=== PATIENT | male | born 1955 | race Caucasian/White ===

== ENCOUNTER 2019-03-02 09:13 | Day surgery (SDC) | payer BC, OTHER ==
[2019-02-27 18:13] VITALS: BMI 22.7
[2019-03-02] VITALS (12 sets, daily range): BP systolic 113–144; BP diastolic 63–90; PULSE 89–110; RESP 12–24; Ht 165.1 cm; Wt 62.2 kg
[~2019-03-02] VITALS: Ht 165.1 cm; Wt 62.2 kg
[~2019-03-02 09:13] MED LIST: DIAZ5TAB PO; SEVOFLURANE 15 MIN ONE; TYL500 PO
[2019-03-02] MEDS ORDERED: PROPOFOL 20 ML ONE (10:14)
[2019-03-02] MEDS ORDERED: CEFAZOLIN 1 GM INJ ONE (10:14)
[2019-03-02] MEDS ORDERED: FENTAnyl 50 MCG/ML VIAL ONE (10:14)
[2019-03-02] MEDS ORDERED: MIDAZOLAM 1 MG/ML 2 ML INJ ONE (10:14)
[2019-03-02] MEDS ORDERED: LIDOCAINE 2% (SDV) 5 ML INJ ONE (10:14)
[2019-03-02] MEDS ORDERED: ASPI325T30 PO (10:26)
[2019-03-02] MEDS ORDERED: GABA-526 PO (10:26)
--- NOTE | 2019-03-02 10:52 | PREAC ---
Date/Time of Note Date/Time of Note DATE: 03/02/19 TIME: 10:50 Anesthesia Eval and Record Evaluation Time Pre-Procedure Interview DATE: 03/02/19 TIME: 10:50 Age 64 Sex male NPO: 8 hrs Preoperative diagnosis SCALP MASS Planned procedure EXCISION SCALP MASS Past Medical History Past Medical History: Includes Neuro: Other (C-SPINE DDD S/P SURGERY, PRE EXISTING ALYSON. UE NUMBNESS TINGLING AND PAIN, OCC WEAKNESS) Surgery & Anesthesia Issues No known issue Meds Anticoagulation: No Beta Tessy within 24 hr: No Reason Beta Tessy not given: Pt. not on B-Tessy Reported Medications Gabapentin* (Gabapentin*) 600 Mg Tablet, 600 MG PO BID, #60 TAB 03/02/19 Aspirin* (Aspirin*) 325 Mg Tablet, 325 MG PO DAILY, TAB 03/02/19 Discontinued Reported Medications Acetaminophen* (Tylenol*) 500 Mg Tab, 1000 MG PO Q6H PRN for PAIN AND OR ELEVATED TEMP, TAB 08/23/14 Diazepam* (Valium*) 5 Mg Tablet, 5 MG PO DAILY PRN for ANXIETY, TAB 08/23/14 Current Medications Sodium Chloride 1,000 ml @ 75 mls/hr [id number] IV ; Start 03/02/19 at 11:00; Stop 03/02/19 at 23:59 Cefazolin Sodium/ Dextrose 50 ml @ 100 mls/hr PRE-OP ONCE IVPB ; Start 03/02/19 at 11:00; Stop 03/02/19 at 11:29 Meds reviewed: Yes Allergies Coded Allergies: No Known Allergy (Unverified , 08/23/14) Allergies Reviewed: Yes Labs/Studies Labs Reviewed: Reviewed by anesthesiologist test: N/A Studies: ECG Pre-procedure Exam Airway: Adequate mouth opening (VERY LIMITED NECK ROM), Adequate thyromental dist Mallampati: Mallampati II Teeth: Normal Lung: Normal Heart: Normal ASA Physical Status ASA physical status: 2 Emergency: None Planned Anesthetic General/MAC: LMA Planned Pain Management Parenteral pain med, Local by surgeon Pre-operative Attestations Prior to commencing anesthesia and surgery, the patient was re-evaluated, there was verification of: *The patient's identity *The results of appropriate recent lab work and preoperative vital signs *The above evaluation not changing prior to induction *Anesthetic plan, risk benefits, alternative and complications discussed with patient/family; questions answered; patient/family understands, accepts and wishes to proceed. KATY ORR March 02, 2019 10:52
--- NOTE | 2019-03-02 10:55 | RADRPT ---
CANDICE GALINDO :1955 Sex:M Status: RECONFIRMED ACC:[id number] Exam DATE:2019-03-02 10:21:56 Vent Rate: 97 bpm RR Interval: 616 msec ND Interval: 126 msec QRS Duration: 83 msec QT Interval: 332 msec QTC Interval: 423 msec P-R-T [place]: 78 - 3 - 38 degrees Sinus rhythm...normal P axis, V-rate 50- [address] depressions, consider ischemia Electronically Signed By: Luis Chiu
[2019-03-02] MEDS ORDERED: SOD CHLORIDE 0.9% 1,000 ML IV SCH (11:00)
[2019-03-02] MEDS ORDERED: CEFAZOLIN 2 GM/50 ML (PMX) 50 ML IVPB ONE (11:00)
[2019-03-02] MEDS ORDERED: ONDANSETRON 4 MG INJ ONE (11:12)
[2019-03-02] MEDS ORDERED: FAMOTIDINE 20 MG INJ ONE (11:13)
[2019-03-02] MEDS ORDERED: METOCLOPRAMIDE 10 MG INJ ONE (11:13)
[2019-03-02] MEDS ORDERED: DEXAMETHASONE 4 MG/ML 5 ML INJ ONE (11:13)
[2019-03-02] MEDS ORDERED: BUPIVACAINE 0.25% (MPF) 30 ML INJ ONE (11:18)
[2019-03-02] MEDS ORDERED: MEPERIDINE 25 MG INJ IV PRN (11:30)
[2019-03-02] MEDS ORDERED: FENTAnyl 50 MCG/ML VIAL IV PRN ×3 (11:30)
[2019-03-02] MEDS ORDERED: OXYCODONE/ACETAMINOPHEN (5/325) TAB PO PRN ×2 (11:30)
[2019-03-02] MEDS ORDERED: ONDANSETRON 4 MG INJ IV PRN (11:30)
--- NOTE | 2019-03-02 11:44 | OPR ---
Date/Time of Note Date/Time of Note DATE: 03/02/19 TIME: 11:37 Operative Report Procedure Date: March 02, 2019 Preoperative Diagnosis scalp basal cell cancer Postoperative Diagnosis same Operation/Procedure Performed 1. wide local excision of basal cell cancer of the scalp 4 cm incision 4 x 2 cm tumor 2. localized adjacent tissue transfer with the use of skin flaps 8 sq cm defect of scalp 3. therapeutic injection of subcutaneous local anesthesia Surgeon see signature line Occupational Therapy Professor none Anesthesia Type: general Estimated Blood Loss: 10 - 50 ml's Transfusion none Specimen basal cell cancer with surgical markings double long anterior skin super single left lateral Grafts/Implants none Complications none Pt Condition Post Procedure: stable Indications This is a 64-year-old male with scalp basal cell cancer. He has had basal cell cancer and other surgical sites. He requires surgical excision. Risks alternatives benefits and personal were discussed the patient. Potential complications include but not limited to bleeding infection recurrence of basal cell and other sites and need for additional operations were discussed the patient. Patient expressed understanding consents to the operation. Procedure Description Patient is taken to the OR prepped and draped in usual sterile fashion. Surgical time was performed. IV antibiotics given. Elliptical incision was made with a 15 blade surrounding the base cell cancer with margins. Surgical margins were double long anterior skin is superior and single long his left lateral. The tumor was then resected all the way down to the scalp bone. Good hemostasis established. The specimen was sent for analysis. Hemostasis status. Due to large tissue defect localized adjacent to his transfer with the disc complexes performed. Multilayer closed with interrupted 2-0 Vicryl and running 4-0 Monocryl. Therapeutic subcutaneous local anesthesia was injected at the incision site. Dermabond was applied. Timmy REMY March 02, 2019 11:44
[2019-03-02] MEDS ORDERED: HYDROCODONE/APAP (5/325) TAB PO ONE (12:00)
--- NOTE | 2019-03-02 13:02 | PAC ---
Date/Time of Note Date/Time of Note DATE: 03/02/19 TIME: 13:02 Post-Anesthesia Notes Post-Anesthesia Note Last documented vital signs Vital Signs Date Temp Pulse Resp B/P (MAP) Pulse Ox O2 O2 Flow FiO2 Time Delivery Rate 03/02/19 97.6 96 20 133/82 98 Room Air 12:32 (99) 03/02/19 2.0 11:59 Activity: WNL Respiratory function: WNL Cardiovascular function: WNL Mental status: Baseline Pain reasonably controlled: Yes Hydration appropriate: Yes Nausea/Vomiting absent: Yes KATY ORR March 02, 2019 13:02
== END 2019-03-02 13:16 | disposition home or self-care (01) ==
LOC: SDS 09:13
PROVIDERS: ATTEND Surgery
DX: C44.41 Basal cell carcinoma of skin of scalp and neck (principal)
CPT/HCPCS: 14020; 88305; 93005; J0690; J1100; J2250; J2405; J2765; J3010; Z7512; Z7610